=== PATIENT | female | born 1940 | race Caucasian/White ===

== ENCOUNTER 2017-07-06 05:59 | Emergency (ER) | payer OTHER ==
[~2017-07-06] VITALS: Ht 152.4 cm; Wt 72.3 kg
[2017-07-06 06:02] VITALS: Ht 152.4 cm; Wt 72.3 kg
--- NOTE | 2017-07-06 06:40 | RADRPT ---
PROCEDURE: Chest. CLINICAL INDICATION: Chest pain. TECHNIQUE: Single frontal view of the chest was obtained. COMPARISON: None. FINDINGS: The cardiac silhouette is enlarged. The aortic arch is calcified. There is pulmonary venous congest ion. There is no focal consolidation or pleural effusion. There is no pneumothorax. IMPRESSION: Moderate cardiomegaly and pulmonary venous congestion. Aortic atherosclerosis. .Remington Skinner MD, MD Date Time Electronically viewed and signed by .Remington Skinner MD, on 07/06/2017 06:40 .T/
[2017-07-06 07:26] LABS: BASOPHILS % 0.6 % (0.0-2.0); EOSINOPHILS # 0.3 10^3/ul (0.0-0.5); EOSINOPHILS % 3.6 % (0.0-7.0); HEMATOCRIT 29.3 % (37.0-47.0); HEMOGLOBIN 9.5 g/dl (12.0-16.0); LYMPHOCYTES # 1.4 10^3/ul (0.8-2.9); LYMPHOCYTES % 20.1 % (15.0-51.0); MEAN CORPUSCULAR HEMOGLOBIN 34.7 pg (29.0-33.0); MEAN CORPUSCULAR HGB CONC 32.4 g/dl (32.0-37.0); MEAN CORPUSCULAR VOLUME 106.9 fl (82.0-101.0); MEAN PLATELET VOLUME 11.2 fl (7.4-10.4); MONOCYTE # 0.4 10^3/ul (0.3-0.9); MONOCYTES % 5.3 % (0.0-11.0); NEUTROPHIL # 4.9 10^3/ul (1.6-7.5); NEUTROPHILS % 70.1 % (39.0-77.0); PLATELET COUNT 161 10^3/UL (140-415); RED BLOOD COUNT 2.74 10^6/ul (4.20-5.40); RED CELL DISTRIBUTION WIDTH 14.2 % (11.5-14.5); WHITE BLOOD COUNT 6.9 10^3/ul (4.8-10.8)
[2017-07-06 07:31] LABS: POSITIVE DIFF @See below
[2017-07-06 07:48] LABS: CREATININE 5.22 mg/dl (0.44-1.00); POTASSIUM 4.5 mmol/L (3.5-5.1)
[2017-07-06] MEDS ORDERED: AMLO2.5T78 PO (08:03)
[2017-07-06] MEDS ORDERED: FURO80TA3 PO (08:03)
[2017-07-06] MEDS ORDERED: ALLO100T PO (08:03)
[2017-07-06] MEDS ORDERED: ATEN-51 PO (08:04)
[2017-07-06] MEDS ORDERED: FAMO20TA18 PO (08:04)
[2017-07-06] MEDS ORDERED: ATEN50TA PO (08:04)
[2017-07-06] MEDS ORDERED: CHOL100062 PO (08:05)
[2017-07-06] MEDS ORDERED: ATOR40TA68 PO (08:05)
[2017-07-06] MEDS ORDERED: FOLI-49 PO (08:05)
[2017-07-06] MEDS ORDERED: ASPI81TA3 PO (08:05)
[2017-07-06 08:08] LABS: TROPONIN-I 0.307 ng/ml (0.00-0.12)
[2017-07-06] MEDS ORDERED: NITROGLYCERIN (SL) 0.4 MG TAB SL ONE (08:30)
[2017-07-06] MEDS ORDERED: ASPIRIN 81 MG TAB PO ONE (08:30)
[2017-07-06 09:06] LABS: BASOPHILS % 0.3 % (0.0-2.0); EOSINOPHILS # 0.1 10^3/ul (0.0-0.5); EOSINOPHILS % 0.9 % (0.0-7.0); HEMATOCRIT 33.4 % (37.0-47.0); HEMOGLOBIN 11.2 g/dl (12.0-16.0); LYMPHOCYTES # 1.6 10^3/ul (0.8-2.9); LYMPHOCYTES % 17.4 % (15.0-51.0); MEAN CORPUSCULAR HEMOGLOBIN 35.6 pg (29.0-33.0); MEAN CORPUSCULAR HGB CONC 33.5 g/dl (32.0-37.0); MEAN PLATELET VOLUME 10.4 fl (7.4-10.4); MONOCYTE # 0.6 10^3/ul (0.3-0.9); MONOCYTES % 6.1 % (0.0-11.0); NEUTROPHIL # 6.7 10^3/ul (1.6-7.5); PLATELET COUNT 208 10^3/UL (140-415); RED BLOOD COUNT 3.15 10^6/ul (4.20-5.40)
--- NOTE | 2017-07-06 10:13 | ERD ---
ER Documentation Chief Complaint Chief Complaint ADAN RA39,CP before start of dialysis at dialysis center,rec'd albuterol HPI This is a 77-year-old female who presents to the emergency room after being brought in by ambulance from her dialysis center for evaluation of chest pain. This patient states that her chest pain has been present for approximately 2 hours prior to arrival in the emergency room. She localizes it to the center of the chest and describes it as a pressure-like sensation with no radiation. She rates her pain as a 4 out of 10 currently. She was given 1 sublingual nitroglycerin and states that her pain is now 2 out of 10. The patient denies any relieving factors for her symptoms and came to the ER for evaluation. ROS All systems reviewed and are negative except as per history of present illness. Medications Home Meds Reported Medications Cholecalciferol* (Vitamin D3*) 1,000 Unit Tablet, 2000 UNIT PO DAILY, TAB 07/06/17 Folic Acid* (Folic Acid*) 1 Mg Tablet, 1 MG PO DAILY, TAB 07/06/17 Aspirin* (Aspirin* Chew) 81 Mg Tab.chew, 81 MG PO DAILY, TAB.CHEW 07/06/17 Atorvastatin* (Atorvastatin*) 40 Mg Tablet, 40 MG PO QHS, #30 TAB 07/06/17 Atenolol* (Atenolol*) 50 Mg Tablet, 50 MG PO QAM, #30 TAB 07/06/17 Atenolol* (Atenolol*) 25 Mg Tablet, 25 MG PO QAM, #30 TAB 07/06/17 Famotidine* (Famotidine*) 20 Mg Tablet, 20 MG PO DAILY, #30 TAB 07/06/17 Furosemide* (Furosemide*) 80 Mg Tablet, 80 MG PO DAILY, #30 TAB 07/06/17 Allopurinol* (Allopurinol*) 100 Mg Tablet, 100 MG PO DAILY, TAB 07/06/17 Amlodipine Besylate* (Amlodipine Besylate*) 2.5 Mg Tablet, 2.5 MG PO DAILY, #30 TAB 07/06/17 Allergies Allergies: Coded Allergies: latex (Verified Allergy, Unknown, 07/06/17) PMhx/Soc History of Surgery: Yes (cardiac stent) Hx Cardiac Disorders: Yes (HTN) Hx Miscellaneous Medical Probl: Yes (ESRD, GERD) Hx Alcohol Use: No Hx Substance Use: No Hx Tobacco Use: No Smoking Status: Never smoker Physical Exam Vitals Vital Signs Date Time Temp Pulse Resp B/P Pulse Ox O2 Delivery O2 Flow Rate FiO2 07/06/17 06:45 73 13 125/57 98 Room Air 07/06/17 06:02 98.0 69 18 115/50 91 Physical Exam INITIAL VITAL SIGNS: Reviewed by me GENERAL: The patient is well developed and appropriate for usual state of health in no apparent distress HEENT: Pupils equal, round, and reactive to light. EOMI. There is no scleral icterus. NECK: C-spine is soft and supple, there is no meningismus. There is no cervical lymphadenopathy. LUNGS: Clear to auscultation bilaterally. There are no rales, wheezes or rhonchi. HEART: Regular rate and rhythm, no murmurs, clicks, rubs or gallops. ABDOMEN: Soft, non-tender, non-distended. There are bowel sounds in all four quadrants. No rebound or guarding. EXTREMITIES: There is no peripheral cyanosis or edema. No focal swelling or erythema. NEUROLOGICAL: The patient moves all four extremities with 5/5 strength. Cranial nerves II - XII are intact. Normal gait. Alert and oriented SKIN: Fistula in place, there is no apparent rash or petechiae. HEME/LYMPHATIC: There is no evidence of excessive bruising or lymphedema. PSYCHIATRIC: The patient does not appear anxious or depressed. Result Diagram: 07/06/17 0820 07/06/17 0630 Results 24 hrs Laboratory Tests Test 07/06/17 06:30 07/06/17 08:20 07/06/17 09:12 Sodium Level 143mmol/L Potassium Level 4.5mmol/L Chloride Level 103mmol/L Carbon Dioxide Level 24mmol/L Anion Gap 21 Blood Urea Nitrogen 62mg/dl Creatinine 5.22mg/dl Glucose Level 160mg/dl Calcium Level 10.0mg/dl Troponin I 0.307ng/ml 0.304ng/ml B-Type Natriuretic Peptide 69029GE/ML White Blood Count 9.010^3/ul Red Blood Count 3.1510^6/ul Hemoglobin 11.2g/dl Hematocrit 33.4% Mean Corpuscular Volume 106.0fl Mean Corpuscular Hemoglobin 35.6pg Mean Corpuscular Hemoglobin Concent 33.5g/dl Red Cell Distribution Width 14.0% Platelet Count 45659^3/UL Mean Platelet Volume 10.4fl Neutrophils % 75.0% Lymphocytes % 17.4% Monocytes % 6.1% Eosinophils % 0.9% Basophils % 0.3% Nucleated Red Blood Cells % 0.0/100WBC Neutrophils # 6.710^3/ul Lymphocytes # 1.610^3/ul Monocytes # 0.610^3/ul Eosinophils # 0.110^3/ul Basophils # 0.010^3/ul Nucleated Red Blood Cells # 0.010^3/ul Current Medications Medications (Trade) Dose Ordered Sig/Aldo Route PRN Reason Start Time Stop Time Status Last Admin Dose Admin Nitroglycerin (Nitroglycerin (Sl Tab) 0.4 Mg) 1 tab ONCE ONCE SL 07/06/17 08:30 07/06/17 08:31 DC Aspirin (Aspirin) 324 mg ONCE ONCE PO 07/06/17 08:30 07/06/17 08:31 DC 07/06/17 09:11 Procedures/MDM EKG: Rate/Rhythm: Left bundle branch block QRS, ST, T-waves: [ST depression in anterior lateral leads] Impression: Left bundle branch block with ST depression in anterior lateral leads EKG: #2 Rate/Rhythm: Left bundle branch block QRS, ST, T-waves: [ST depression in anterior lateral leads] Impression: Left bundle branch block with ST depression in anterior lateral leads Chest X-ray 1V Interpreted by me: Soft Tissue: No acute abnormalities Bones: No acute abnormalities Mediastinum/Cardiac Silhouette/Lungs: [No acute abnormalities] This 77-year-old female presents to the ER for evaluation of chest pain. The patient did have left bundle branch block and ST depressions on her initial EKG however she had no signs of ST elevation. Lab work was obtained, this patient does have elevated troponin. She does have end-stage renal disease and I have contacted [facility] and they have reviewed her previous EKGs and stated this patient does have a chronic left bundle branch block. Her troponin is elevated secondary to her end-stage renal disease. The patient does have a history of coronary artery disease with a stent placed in September 2015 at [facility] facility with collections agent Dr. Lovell. The patient is hemodynamically stable at this time , she was given aspirin, I have spoken to Dr. fontanez and have reviewed the case with him. The patient will be transferred to [facility] at this time for evaluation of chest pain and elevation of troponin. Case #[id number]. This patient's a second troponin does not show any trending up of her troponin levels , and I spoken to Dr. Irby who will facilitate transfer Critical Care: Excluding all billable procedures Time: 35 minutes Treatments/Evaluations: Close monitoring and treatment of unstable vital signs, cardiorespiratory, and neurologic status, while maintaining tight balance of fluid, respiratory, and cardiac interventions. Departure Diagnosis: Primary Impression: Chest pain Additional Impressions: Macrocytic anemia Elevated troponin End stage renal disease FREYA ROSALES DO Jul 06, 2017 10:13
[2017-07-06 11:08] VITALS: BP 117/59; PULSE 72; RESP 22
== END 2017-07-06 13:38 | disposition short-term general hospital (02) ==
LOC: E/R 05:59
DX: D53.9 Nutritional anemia, unspecified (principal); I12.0 Hypertensive chronic kidney disease with stage 5 chronic kidney disease or end stage renal disease; N18.6 End stage renal disease; R79.89 Other specified abnormal findings of blood chemistry; R06.02 Shortness of breath; R40.2142 Coma scale, eyes open, spontaneous, at arrival to emergency department; R40.2252 Coma scale, best verbal response, oriented, at arrival to emergency department; R40.2362 Coma scale, best motor response, obeys commands, at arrival to emergency department; Z99.2 Dependence on renal dialysis; Z79.82 Long term (current) use of aspirin
CPT/HCPCS: 36415; 71010; 80048; 83880; 84484; 85025; 93005